=== PATIENT | female | born 1945 | race Caucasian/White ===

== ENCOUNTER 2020-03-16 12:50 | Observation (INO) | payer MEDICARE ==
[~2020-03-16] VITALS: Ht 165.1 cm; Wt 62.9 kg
[2020-03-16 13:42] VITALS: BP 153/100
[2020-03-16] MEDS ORDERED: GABA600T7 PO (14:03)
[2020-03-16] MEDS ORDERED: LOSA100T14 PO (14:03)
[2020-03-16] MEDS ORDERED: SERT100T32 PO (14:03)
[2020-03-16] MEDS ORDERED: OMEP40CA42 PO (14:03)
[2020-03-16] MEDS ORDERED: METO50TA82 PO (14:03)
[2020-03-16] MEDS ORDERED: ALEN70TA6 PO (14:03)
[2020-03-16] MEDS ORDERED: LACTATED RINGERS 1,000 ML IV SCH (14:04)
[2020-03-16] MEDS ORDERED: CHLORHEXIDINE 15 ML UDC ONE (14:13)
[2020-03-16] MEDS ORDERED: LIDOCAINE-MPF 1%, 2ML INFIL ONE (14:30)
[2020-03-16] MEDS ORDERED: CHLORHEXIDINE 15 ML UDC MM ONE (14:30)
[2020-03-16 14:41] LABS: ALANINE AMINOTRANSFERASE 28 U/L (12-78); ALBUMIN 3.9 g/dL (3.4-5.0); ANION GAP 11 mmol/L (5-15); CALCIUM 9.2 mg/dL (8.5-10.1); CHLORIDE 107 mmol/L (98-107); CREATININE 1.24 mg/dL (0.55-1.02)
[2020-03-16 14:43] LABS: ALKALINE PHOSPHATASE 98 U/L (45-117); TOTAL PROTEIN 7.8 g/dL (6.4-8.2)
[2020-03-16] MEDS ORDERED: MIDAZOLAM 1 MG/ML, 2ML ONE ×2 (16:53→16:59)
[2020-03-16] MEDS ORDERED: LIDOCAINE-MPF 2% ,5ML ONE (16:59)
[2020-03-16] MEDS ORDERED: FENTANYL PF 250 MCG/5ML ONE (16:59)
[2020-03-16] MEDS ORDERED: ROCURONIUM 10MG/ML,5ML ONE (16:59)
[2020-03-16] MEDS ORDERED: DEXAMETHASONE 4 MG/ML, 1ML ONE (16:59)
[2020-03-16] MEDS ORDERED: GLYCOPYRROLATE 0.2MG/1ML, 5ML ONE (16:59)
[2020-03-16] MEDS ORDERED: CEFAZOLIN 1,000 MG ONE (17:58)
[2020-03-16] MEDS ORDERED: HALOPERIDOL 5 MG/ML IV PRN (18:30)
[2020-03-16] MEDS ORDERED: LORazepam 2 MG/ML, 1ML IVPush PRN (18:30)
[2020-03-16] MEDS ORDERED: FENTANYL PF 100 MCG/2ML IV PRN (18:30)
[2020-03-16] MEDS ORDERED: MIDAZOLAM 1 MG/ML, 2ML IV PRN (18:30)
[2020-03-16] MEDS ORDERED: hydrALAzine 20 MG/ML, 1ML IV PRN (18:30)
[2020-03-16] MEDS ORDERED: HYDROcodone/APAP 7.5-325MG/15ML UDC PO PRN (18:30)
[2020-03-16] MEDS ORDERED: KETOROLAC 30 MG/1 ML IV PRN (18:30)
[2020-03-16] MEDS ORDERED: METHOCARBAMOL 1,000 MG in DEXTROSE 5% 100 ML IV PRN (18:30)
[2020-03-16] MEDS ORDERED: OXYcodone 5 MG/5 ML ORAL.SOL UDC PO PRN (18:30)
[2020-03-16] MEDS ORDERED: EPHEDRINE 50 MG/ML, 1ML IVPush PRN (18:30)
[2020-03-16] MEDS ORDERED: DIAZEPAM 5 MG/ML, 2ML IVPush PRN (18:30)
[2020-03-16] MEDS ORDERED: HYDROmorphone 1 MG/ML, 1ML INJ IVPush PRN (18:30)
[2020-03-16] MEDS ORDERED: DIPHENHYDRAMINE 50 MG/ML, 1ML IVPush PRN (18:30)
[2020-03-16] MEDS ORDERED: LABETALOL 5MG/ML, 20ML IV PRN (18:30)
[2020-03-16] MEDS ORDERED: METOCLOPRAMIDE 5 MG/ML, 2ML IVPush PRN (18:30)
[2020-03-16] MEDS ORDERED: ALBUTEROL/IPRATROPIUM 2.5MG/0.5MG, 3 ML NPPB PRN (18:30)
[2020-03-16] MEDS ORDERED: ACETAMINOPHEN 325 MG TABLET PO PRN ×2 (18:30→19:30)
[2020-03-16] MEDS ORDERED: ONDANSETRON 2MG/ML, 2ML IVPush PRN ×2 (18:30→19:30)
[2020-03-16] MEDS ORDERED: HYDROcodone/APAP 5/325 TABLET PO PRN (19:30)
[2020-03-16] MEDS ORDERED: SENNA/DOCUSATE TABLET PO PRN (19:30)
[2020-03-16] MEDS ORDERED: ALUMINUM/MAG/SIMETHICONE 30 ML UDC PO PRN (19:30)
[2020-03-16] MEDS ORDERED: MAGNESIUM HYDROXIDE 8%, 30ML UDC PO PRN (19:30)
[2020-03-16] MEDS ORDERED: morphine SULFATE 10 MG/ML, 1ML IVPush PRN (19:30)
[2020-03-16] MEDS ORDERED: OXYcodone/APAP 5/325MG TABLET PO PRN (19:30)
[2020-03-16] MEDS ORDERED: BISACODYL 10 MG SUPP PR PRN (19:30)
[2020-03-16] MEDS ORDERED: hydrALAzine 20 MG/ML, 1ML ONE (20:19)
[2020-03-17 00:32] VITALS: BP 140/80
[2020-03-17] MEDS ORDERED: CEFAZOLIN PMX 1GM/50ML 50 ML IVPB SCH (02:00)
[2020-03-17 03:32] VITALS: BP 137/73
[2020-03-17 07:36] VITALS: BP 150/83
[2020-03-17] MEDS ORDERED: ONDA4TAB7 PO (10:25)
== END 2020-03-17 10:40 | disposition home or self-care (01) ==
LOC: OUT 12:50 → 4NE 19:28 → OUT 22:38 → DCLOUNGE 03-17 10:29
PROVIDERS: ADMIT Orthopaedic Surgery; ATTEND Orthopaedic Surgery
DX: Z03.818 Encounter for observation for suspected exposure to other biological agents ruled out (principal); S42.412A Displaced simple supracondylar fracture without intercondylar fracture of left humerus, initial encounter for closed fracture; K21.9 Gastro-esophageal reflux disease without esophagitis; I10 Essential (primary) hypertension; M81.0 Age-related osteoporosis without current pathological fracture; N28.9 Disorder of kidney and ureter, unspecified; Z88.5 Allergy status to narcotic agent; W18.39XA Other fall on same level, initial encounter; Y93.89 Activity, other specified; Y92.89 Other specified places as the place of occurrence of the external cause
CPT/HCPCS: 24545; 36415; 73060; 76000; 80053; 87635; 93005; 96365; 96375; C1713; G0378; J0360; J0690; J1100; J2250; J2405; J3010; J3490; J7120; U0001